=== PATIENT | female | born 1950 | race Caucasian/White ===

== ENCOUNTER 2025-05-23 15:27 | Inpatient (IN) | payer MEDICARE, OTHER ==
[~2025-05-23] VITALS: Ht 152.4 cm; Wt 175.0 kg
[2025-05-23 15:48] VITALS: BP 166/98; PULSE 103; RESP 16; TEMP 98.4; O2SAT 94
[2025-05-23 16:47] VITALS: BP 166/98; PULSE 103; RESP 16; TEMP 98.4; O2SAT 94
[2025-05-23] MEDS ORDERED: NITROGLYCERIN 0.4 MG SL TAB SL PRN (17:15)
[2025-05-23] MEDS ORDERED: MORPHINE SULFATE INJ 2 MG/ml SYRG IV PRN (17:15)
[2025-05-23] MEDS ORDERED: ASPI-543 PO (17:19)
[2025-05-23] MEDS ORDERED: POM (17:19)
[2025-05-23] MEDS ORDERED: POM PO (17:19)
[2025-05-23] MEDS ORDERED: LEVO25TA6 PO (17:19)
[2025-05-23] MEDS ORDERED: MELO7.5T7 PO (17:19)
[2025-05-23] MEDS ORDERED: METF-370 PO (17:19)
[2025-05-23] MEDS ORDERED: ACETAMINOPHEN 325 MG TAB PO PRN (17:30)
--- NOTE | 2025-05-23 17:38 | DVHHP2 ---
Patient Family History: Patient reports no known family medical history. Allergies: Coded Allergies: NO KNOWN ALLERGIES (Unverified , 05/23/25) Home Meds Reported Medications Patients Own Medication (PATIENTS OWN MEDICATION) ., 5-20 PO DAILY DRUG: Amlodipine/benazepril 5-20 FREQ: D RX# EXP: DATE DISP: TECH: RP: 05/23/25 Patients Own Medication (PATIENTS OWN MEDICATION) . PTS OWN MED-OBTAIN FROM PT AND SEND TO RX DRUG: FREQ: RX# EXP: DATE DISP: TECH: RP: 05/23/25 Aspirin (Aspir-Low) 81 Mg Tab, 81 MG PO DAILY for 30 Days, MG 05/23/25 Levothyroxine Sodium (Levothyroxine Sodium) 25 Mcg Tab, 25 MCG PO QAM, MCG 05/23/25 Meloxicam (Meloxicam) 7.5 Mg Tab, 1 TAB PO DAILY, #30 TAB 2 Refills 05/23/25 Metformin Hydrochloride (Metformin Hcl) 500 Mg Tab, 500 MG PO DAILY for 30 Days, MG 05/23/25 Current Medications Current Medications Medications (Trade) Dose Ordered Sig/Grupo Route PRN Reason Start Time Stop Time Status Last Admin Nitroglycerin (Ntrostat Sublingual) 0.4 mg Q5MINP PRN SL FOR CHEST PAIN 05/23/25 17:15 UNV Morphine Sulfate 2 mg Q30M PRN IV FOR CHEST PAIN 05/23/25 17:15 UNV Furosemide (Lasix Injection) 20 mg DAILY IV 05/24/25 10:00 UNV Acetaminophen (Tylenol Tablet) 325 mg Q6HP PRN PO MILD PAIN (1-3 PAIN SCALE) 05/23/25 17:30 UNV Vital Signs Vital Signs Date Time Temp Pulse Resp B/P (MAP) Pulse Ox O2 Delivery O2 Flow Rate FiO2 05/23/25 16:47 98.4 103 16 166/98 (120) 94 98.4 05/23/25 15:48 Room Air* 0 21 SEPSIS Sepsis Screen Physician Orders Admit (05/23/25 17:14) Nitroglycerin Sublingual (Ntrostat Subli (05/23/25 17:15) Morphine Sulfate Injection (05/23/25 17:15) Stat Ekg For Chest Pain (05/23/25 17:14) Notify Md Of Changes From Base (05/23/25 17:14) Assembler Clip On Sunglasses For 24 Hours (05/23/25 17:14) Emergency Dysrhythmia Protocol (05/23/25 17:14) Rhythm Strips Once Every Shift (05/23/25 17:14) Oxygen By Nasal Cannula (05/23/25 17:14) Furosemide Injection (Lasix Injection) (05/24/25 10:00) Furosemide Injection (Lasix Injection) (05/23/25 17:15) Complete Blood Count (05/23/25 17:14) Complete Blood Count (05/24/25 07:00) Comprehensive Metabolic Panel (05/23/25 17:14) Comprehensive Metabolic Panel (05/24/25 07:00) Thyroid Stimulating Hormone (05/23/25 17:14) Lipid Panel (05/23/25 07:00) Hemoglobin A1c (05/24/25 07:00) Chest Two Views Routine (05/23/25 17:14) Electrocardigram (05/24/25 05:00) Electrocardigram (05/23/25 18:14) Electrocardigram (05/23/25 20:14) B-Type Natriuretic Peptide (05/23/25 17:14) Acetaminophen Tablet (Tylenol Tablet) (05/23/25 17:30) Consistent Carb(Ccho)Diabetes (05/23/25 Dinner) Vital Signs Date Time Temp Pulse Resp B/P (MAP) Pulse Ox O2 Delivery O2 Flow Rate FiO2 05/23/25 16:47 98.4 103 16 166/98 (120) 94 98.4 05/23/25 15:48 Room Air* 0 21 05/23/25 15:48 98.4 103 16 166/98 (120) 94 98.4 LILLIAM KINGSLEY MD May 23, 2025 17:38
[2025-05-23] MEDS: FUROSEMIDE 20 MG/2 ML VIAL IV ONE (17:47)
[2025-05-23 18:31] LABS: Hematocrit 47.8 % (36.0-46.0); Hemoglobin 16.4 g/dL (12.2-16.2); Mean Corpuscular Hemoglobin 31.5 pg (28.0-32.0); Mean Corpuscular Volume 91.8 fL (80.0-100.0); Nucleated Red Blood Cells % 0.1 %
[2025-05-23 18:43] LABS: Triglycerides 118 mg/dL (< 150)
[2025-05-23 18:45] LABS: HDL Cholesterol 54 mg/dL (40-59)
[2025-05-23 18:46] LABS: Alanine Aminotransferase 15 U/L (7-40); Alkaline Phosphatase 110 U/L (46-116); Anion Gap 8 (5-15); BUN/Creatinine Ratio 12.0 (10.0-20.0); Blood Urea Nitrogen 13 mg/dL (9-23); Calcium 9.2 mg/dL (8.7-10.4); Carbon Dioxide 27 mmol/L (20-31); Chloride 106 mmol/L (98-107); Cholesterol 267 mg/dL (< 200); Potassium 4.0 mmol/L (3.5-5.1); Sodium 141 mmol/L (136-145); Total Protein 7.5 g/dL (5.7-8.2)
[2025-05-23 18:47] LABS: Albumin 4.8 g/dL (3.2-4.8); Bilirubin, Total 0.6 mg/dL (0.2-1.0); Glucose 112 mg/dL (74-106)
[2025-05-23 20:00] VITALS: PULSE 97
[2025-05-23 21:00] VITALS: BP 134/79; PULSE 76; RESP 17; TEMP 98; O2SAT 92
[2025-05-24] VITALS (7 sets, daily range): BP systolic 129–160; BP diastolic 78–93; PULSE 71–94; RESP 16–19; TEMP 97.7–98.3; O2SAT 90–99
[2025-05-24 07:46] LABS: Hematocrit 45.6 % (36.0-46.0); Hemoglobin 15.3 g/dL (12.2-16.2); Mean Corpuscular Hemoglobin 30.9 pg (28.0-32.0); Mean Corpuscular Volume 91.7 fL (80.0-100.0); Nucleated Red Blood Cells % 0.0 %
[2025-05-24 07:56] LABS: Alanine Aminotransferase 13 U/L (7-40); Albumin 4.2 g/dL (3.2-4.8); Alkaline Phosphatase 96 U/L (46-116); Anion Gap 8 (5-15); BUN/Creatinine Ratio 16.0 (10.0-20.0); Blood Urea Nitrogen 17 mg/dL (9-23); Calcium 9.2 mg/dL (8.7-10.4); Carbon Dioxide 27 mmol/L (20-31); Glucose 102 mg/dL (74-106); Potassium 4.2 mmol/L (3.5-5.1); Sodium 144 mmol/L (136-145); Total Protein 6.8 g/dL (5.7-8.2)
[2025-05-24 07:57] LABS: Bilirubin, Total 0.5 mg/dL (0.2-1.0)
[2025-05-24 08:07] LABS: Chloride 109 mmol/L (98-107)
--- NOTE | 2025-05-24 08:53 | DVH ---
EXAM: XY CHEST TWO VIEWS ROUTINE CLINICAL HISTORY: CHF COMPARISON: None TECHNIQUE: Frontal and lateral view of the chest was obtained FINDINGS: Lines and Tubes: None Lungs: No focal consolidation. Pleura: No effusion. No pneumothorax. Cardiomediastinal contours: Unremarkable. Atherosclerotic vascular calcifications of the thoracic ao rta are noted. Bones: No acute osseous abnormality. IMPRESSION: No acute cardiopulmonary disease.
[2025-05-24] MEDS: FUROSEMIDE 20 MG/2 ML VIAL IV SCH (10:28)
--- NOTE | 2025-05-24 22:33 | DVHPN2 ---
Progress Note - Dictate Subjective Currently being evaluated for acute congestive heart failure, anasarca And uncontrolled hypertension. The patient is responding to IV diuretics and fluid restriction Her urine output is exiting oral intake of fluids Overnight events are reviewed through medical chart and case discussion with patient's assigned RN while making rounds on patient on the day of service vital signs Vital Sign Date Time Temp Pulse Resp B/P (MAP) Pulse Ox O2 Delivery O2 Flow Rate FiO2 05/24/25 20:00 Room Air* 0 21 05/24/25 17:00 98.3 88 18 146/89 (108) 95 98.3 Total Intake and Output 05/23/25 05/23/25 05/24/25 14:59 22:59 06:59 Intake Total 550 ml Balance 550 ml medications Current Medications Medications Dose Ordered Sig/Grupo Route Start Time Stop Time Status Last Admin Dose Admin Nitroglycerin 0.4 mg Q5MINP PRN SL 05/23/25 17:15 Morphine Sulfate 2 mg Q30M PRN IV 05/23/25 17:15 Furosemide 20 mg DAILY IV 05/24/25 10:00 05/24/25 10:28 20 MG Acetaminophen 325 mg Q6HP PRN PO 05/23/25 17:30 objective General appearance: Well-developed, well-nourished Awake alert oriented x3 no respiratory distress Head: Normocephalic nontraumatic Eyes: EOMI, KAYLIN, sclera nonicteric, conjunctive- pale ENT: No congestion, NSL bilateral symmetrical, oral mucosa dry Neck: Supple, carotid upstroke +2, trachea midline, JVD-3 cm, C spine- Full ROM No thyroid or lymph node , no use of sternomastoid muscle Chest: Bilateral symmetrical expansions, No costochondral tenderness Breasts: I exam - Bilateral symmetrical, Pexam - deferred Lungs: clear breath sounds all over except reduced at bases CVS: PMI- cm medial to L MCL in fifth ICS , S1- S2 NSR no S3 GI: Abdomen soft, obese, bowel sounds normoactive No focal tenderness, no rebound tenderness No hepatosplenomegaly, no mass no hernia , : No CVA tenderness, no bladder mass palpable, genitalia-NE SKIN: Turgor normal, color pink, no rash, no icterus, No varicosity, no ulcers or wounds EXTs: No edema, color pink, no rash, no ecchymosis distal pulses +2 capillary refill <2 seconds, No open wounds JOINTS; full range of motion BACK: No apparent lumbosacral spinal muscle tenderness, LYMPH NODES: No cervical, axillary or inguinal lymph nodes Neuro: Awake alert oriented 4, coherent, all cognitives- intact No pronator drift, no focal motor deficit, No focal sensory deficit, DTR +2, gait steady PSYCH: Affect mildly depressed-denies suicidal ideation laboratory and microbiology Laboratory Tests 05/24/25 06:02 Test 05/24/25 06:02 Range/Units Serum Glucose 102 74-106 mg/dL Problem List Acute congestive heart failure Anasarca Retention edema Hypothyroidism Assessment/Plan Recommended patient to continue receiving IV Lasix LILLIAM KINGSLEY MD May 24, 2025 22:33
[2025-05-25] VITALS (8 sets, daily range): BP systolic 123–149; BP diastolic 76–90; PULSE 70–113; RESP 15–18; TEMP 97.4–98.2; O2SAT 92–99
[2025-05-25 06:27] LABS: Alanine Aminotransferase 13 U/L (7-40); Alkaline Phosphatase 94 U/L (46-116); Calcium 9.0 mg/dL (8.7-10.4); Carbon Dioxide 28 mmol/L (20-31); Potassium 4.4 mmol/L (3.5-5.1)
[2025-05-25 06:28] LABS: Albumin 4.2 g/dL (3.2-4.8); Anion Gap 6 (5-15); BUN/Creatinine Ratio 16.9 (10.0-20.0); Bilirubin, Total 0.6 mg/dL (0.2-1.0); Blood Urea Nitrogen 20 mg/dL (9-23); Sodium 141 mmol/L (136-145); Total Protein 6.8 g/dL (5.7-8.2)
[2025-05-25 06:43] LABS: Chloride 107 mmol/L (98-107); Glucose 113 mg/dL (74-106)
--- NOTE | 2025-05-25 08:26 | DVH ---
US KIDNEY HISTORY: hydronephrosis COMPARISON: None TECHNIQUE: Transverse and longitudinal grayscale and color doppler images were obtained of the kidney s and bladder. FINDINGS: Right kidney: Size: 8.5 cm Cortical thickness: Normal Echogenicity: Normal Stones: None Masses: None Hydronephrosis: None Ureters: Not well visualized. Other: None Left kidney: Size: 8.9 cm Cortical thickness: Normal Echogenicity: Normal Stones: None Masses: None Hydronephrosis: None Ureters: Not well visualized. Other: None Bladder: Normal Other: None. IMPRESSION: No hydronephrosis seen.
--- NOTE | 2025-05-25 12:15 | ECG ---
[facility] Test Date: 2025-05-23 Test Time: 18:01:34 Pat Name: TYRON ALVARENGA Department: [facility] Room: [address] [place] [address] Gender: F Security Operations Analyst: PRIMITIVO : 1950 Requested By: LILLIAM KINGSLEY Order Number: [id number] Reading MD: Brady Silva Measurements Intervals [place] Rate: 82 P: 63 MD: 146 QRS: 32 QRSD: 78 T: 76 QT: 353 QTc: 413 Interpretive Statements Sinus rhythm Borderline T abnormalities, anterior leads Electronically Signed On 05-27-2025 10:12:45 PDT by Brady Silva Please click the below link to view image of tracing.
--- NOTE | 2025-05-25 16:26 | DVHPN2 ---
Progress Note - Dictate Date Seen: May 25, 2025 Subjective Currently being evaluated for acute congestive heart failure, anasarca And uncontrolled hypertension. The patient is responding to IV diuretics and fluid restriction Her urine output is exiting oral intake of fluids Overnight events are reviewed through medical chart and case discussion with patient's assigned RN while making rounds on patient on the day of service vital signs Vital Sign Date Time Temp Pulse Resp B/P (MAP) Pulse Ox O2 Delivery O2 Flow Rate FiO2 05/25/25 12:55 98.0 90 18 141/76 (97) 94 98.0 05/25/25 08:00 Room Air* 0 21 Total Intake and Output 05/24/25 05/24/25 05/25/25 15:00 23:00 07:00 Intake Total 800 ml 650 ml Balance 800 ml 650 ml medications Current Medications Medications Dose Ordered Sig/Grupo Route Start Time Stop Time Status Last Admin Dose Admin Nitroglycerin 0.4 mg Q5MINP PRN SL 05/23/25 17:15 Morphine Sulfate 2 mg Q30M PRN IV 05/23/25 17:15 Furosemide 20 mg DAILY IV 05/24/25 10:00 05/25/25 10:02 20 MG Acetaminophen 325 mg Q6HP PRN PO 05/23/25 17:30 objective General appearance: Well-developed, well-nourished Awake alert oriented x3 no respiratory distress Head: Normocephalic nontraumatic Eyes: EOMI, KAYLIN, sclera nonicteric, conjunctive- pale ENT: No congestion, NSL bilateral symmetrical, oral mucosa dry Neck: Supple, carotid upstroke +2, trachea midline, JVD-3 cm, C spine- Full ROM No thyroid or lymph node , no use of sternomastoid muscle Chest: Bilateral symmetrical expansions, No costochondral tenderness Breasts: I exam - Bilateral symmetrical, Pexam - deferred Lungs: clear breath sounds all over except reduced at bases CVS: PMI- cm medial to L MCL in fifth ICS , S1- S2 NSR no S3 GI: Abdomen soft, obese, bowel sounds normoactive No focal tenderness, no rebound tenderness No hepatosplenomegaly, no mass no hernia , : No CVA tenderness, no bladder mass palpable, genitalia-NE SKIN: Turgor normal, color pink, no rash, no icterus, No varicosity, no ulcers or wounds EXTs: No edema, color pink, no rash, no ecchymosis distal pulses +2 capillary refill <2 seconds, No open wounds JOINTS; full range of motion BACK: No apparent lumbosacral spinal muscle tenderness, LYMPH NODES: No cervical, axillary or inguinal lymph nodes Neuro: Awake alert oriented 4, coherent, all cognitives- intact No pronator drift, no focal motor deficit, No focal sensory deficit, DTR +2, gait steady PSYCH: Affect mildly depressed-denies suicidal ideation laboratory and microbiology Laboratory Tests 05/25/25 05:32 05/24/25 06:02 Test 05/25/25 05:32 Range/Units Serum Glucose 113 H 74-106 mg/dL Problem List Acute congestive heart failure Anasarca Retention edema Hypothyroidism Assessment/Plan Recommended patient to continue receiving IV Lasix LILLIAM KINGSLEY MD May 25, 2025 16:26
[2025-05-26] VITALS (9 sets, daily range): BP systolic 119–153; BP diastolic 72–90; PULSE 74–113; RESP 16–20; TEMP 97.6–98.3; O2SAT 92–98
--- NOTE | 2025-05-26 16:47 | DVHPN2 ---
Progress Note - Dictate Date Seen: May 26, 2025 Subjective Currently being evaluated for acute congestive heart failure, anasarca And uncontrolled hypertension. She is responding to IV diuretics fluid restriction She received 2D echo exam results of which are pending Recommended renal ultrasound for acute kidney injury She reports to have symptoms of wheezing and chest congestion Recommended patient to receive IV antibiotics and bronchodilators med neb treatments Overnight events are reviewed through medical chart and case discussion with patient's assigned RN while making rounds on patient on the day of service vital signs Vital Sign Date Time Temp Pulse Resp B/P (MAP) Pulse Ox O2 Delivery O2 Flow Rate FiO2 05/26/25 13:00 97.6 92 20 147/90 (109) 95 97.6 05/26/25 08:00 Room Air* 0 21 Total Intake and Output 05/25/25 05/25/25 05/26/25 15:00 23:00 07:00 Intake Total 250 ml 600 ml Balance 250 ml 600 ml medications Current Medications Medications Dose Ordered Sig/Grupo Route Start Time Stop Time Status Last Admin Dose Admin Nitroglycerin 0.4 mg Q5MINP PRN SL 05/23/25 17:15 Morphine Sulfate 2 mg Q30M PRN IV 05/23/25 17:15 Furosemide 20 mg DAILY IV 05/24/25 10:00 05/26/25 09:37 20 MG Acetaminophen 325 mg Q6HP PRN PO 05/23/25 17:30 objective General appearance: Well-developed, well-nourished Awake alert oriented x3 no respiratory distress Head: Normocephalic nontraumatic Eyes: EOMI, KAYLIN, sclera nonicteric, conjunctive- pale ENT: No congestion, NSL bilateral symmetrical, oral mucosa dry Neck: Supple, carotid upstroke +2, trachea midline, JVD-3 cm, C spine- Full ROM No thyroid or lymph node , no use of sternomastoid muscle Chest: Bilateral symmetrical expansions, No costochondral tenderness Breasts: I exam - Bilateral symmetrical, Pexam - deferred Lungs: clear breath sounds all over except reduced at bases CVS: PMI- cm medial to L MCL in fifth ICS , S1- S2 NSR no S3 GI: Abdomen soft, obese, bowel sounds normoactive No focal tenderness, no rebound tenderness No hepatosplenomegaly, no mass no hernia , : No CVA tenderness, no bladder mass palpable, genitalia-NE SKIN: Turgor normal, color pink, no rash, no icterus, No varicosity, no ulcers or wounds EXTs: No edema, color pink, no rash, no ecchymosis distal pulses +2 capillary refill <2 seconds, No open wounds JOINTS; full range of motion BACK: No apparent lumbosacral spinal muscle tenderness, LYMPH NODES: No cervical, axillary or inguinal lymph nodes Neuro: Awake alert oriented 4, coherent, all cognitives- intact No pronator drift, no focal motor deficit, No focal sensory deficit, DTR +2, gait steady PSYCH: Affect mildly depressed-denies suicidal ideation laboratory and microbiology Laboratory Tests 05/25/25 05:32 05/24/25 06:02 Test 05/25/25 05:32 Range/Units Serum Glucose 113 H 74-106 mg/dL Problem List Acute congestive heart failure Anasarca Retention edema Hypothyroidism Assessment/Plan Recommended patient to continue receiving IV Lasix Dietary Evaluation Review Recommendations by RD: Dietary education by RD Comments: 1) Add cardiac restriction to 60g CCHO diet 2) Encourage optimal PO intake 3) Refer to outpatient RD/CDCES for weight management 4) Follow-up with cardiology 5) Continue to monitor I&O, labs, and skin integrity Expected Outcomes/Goals: 1) appetite and labs to improve 2) gradual wt loss 3) f/u in 3-5 days LILLIAM KINGSLEY MD May 26, 2025 16:47
[2025-05-26] MEDS: ALBUTEROL SULF 2.5 MG/0.5ML(0.5%) NEB SOLN ONE (16:59)
[2025-05-26] MEDS: ALBUTEROL SULF 2.5 MG/0.5ML(0.5%) NEB SOLN NEB ONE (16:59)
--- NOTE | 2025-05-26 19:38 | DVHSR ---
APPROVED REPORT EXAM: Two-dimensional and M-mode echocardiogram with Doppler and color Doppler. Blood Pressure: 128/86 mmHg INDICATION CHF RISK FACTORS Obesity: Height: 5'0", Weight: 173 DIMENSIONS LVDd3.3 (3.8-5.7cm)LA (2D)2.4 (1.9-4.0cm)Aortic Root3.1 (2.0-3.7cm) LVDs2.3 (2.5-4.0cm)LA (MM) (1.9-4.0cm)Aortic Cusp Exc1.5 (1.5-2.0cm) EF (%) 50.0 (55-70%)Rt. Atrium3.2 (1.9-4.0cm)Asc. Aorta cm IVSd1.0 (0.7-1.1cm)RV (D) (1.8-2.4cm) PWd1.1 (0.7-1.1cm) Mitral Valve MitralMitral Stenosis E wave0.61m/sMV Mean GR.mmHg A wave1.07m/sMV Peak GR.mmHg E/A ratio0.62D MVAcm2 DECEL [id number] 1/2 Timems Aortic Valve Aortic ValveAortic Stenosis V10.90m/Nikky Mean GR.3mmHg V21.24m/Nikky Peak GR.6mmHg LVOT Diameter1.6 (1.8-2.4cm)Doppler AVA1.46cm2 Other Information Quality : Technically LimitedRhythm : Technically limited study due to body habitus. Conclusion MILD LVH AND MILD LV DIASTOLIC DYSFUNCTION LV EF IS 60% NORMAL VALVES NORMAL RV FUNCTION NO EFFUSION
[2025-05-27] VITALS (15 sets, daily range): BP systolic 122–150; BP diastolic 73–95; PULSE 75–107; RESP 16–18; TEMP 97.2–98.5; O2SAT 93–100
[2025-05-27 07:43] LABS: Hematocrit 44.5 % (36.0-46.0); Hemoglobin 15.2 g/dL (12.2-16.2); Mean Corpuscular Hemoglobin 31.3 pg (28.0-32.0); Mean Corpuscular Volume 91.3 fL (80.0-100.0); Nucleated Red Blood Cells % 0.1 %
[2025-05-27 07:55] LABS: Alanine Aminotransferase 11 U/L (7-40); Albumin 4.1 g/dL (3.2-4.8); Alkaline Phosphatase 89 U/L (46-116); Anion Gap 3 (5-15); BUN/Creatinine Ratio 17.5 (10.0-20.0); Bilirubin, Total 0.5 mg/dL (0.2-1.0); Blood Urea Nitrogen 22 mg/dL (9-23); Calcium 9.0 mg/dL (8.7-10.4); Carbon Dioxide 30 mmol/L (20-31); Glucose 101 mg/dL (74-106); Potassium 4.7 mmol/L (3.5-5.1); Sodium 141 mmol/L (136-145); Total Protein 6.6 g/dL (5.7-8.2)
[2025-05-27 08:03] LABS: Chloride 108 mmol/L (98-107)
--- NOTE | 2025-05-27 10:20 | DVH ---
ULTRASOUND RENAL CLINICAL INDICATION: Renal artery stenosis TECHNIQUE: Real-time sonographic, duplex, and color Doppler images of the kidneys were obtained. FINDINGS: Resistive indices and velocities within normal limits IMPRESSION: Normal examination. [<reference, normal RI <.7>]
[2025-05-27] MEDS: ALBUTEROL SULF 2.5 MG/0.5ML(0.5%) NEB SOLN NEB PRN (19:52)
--- NOTE | 2025-05-27 23:06 | DVHPN2 ---
Progress Note - Dictate Date Seen: May 27, 2025 Subjective Currently being evaluated for acute congestive heart failure, anasarca And uncontrolled hypertension. She is responding to IV diuretics fluid restriction She received 2D echo exam results of which are pending Recommended renal ultrasound for acute kidney injury She reports to have symptoms of wheezing and chest congestion Recommended patient to receive IV antibiotics and bronchodilators med neb treatments Overnight events are reviewed through medical chart and case discussion with patient's assigned RN while making rounds on patient on the day of service vital signs Vital Sign Date Time Temp Pulse Resp B/P (MAP) Pulse Ox O2 Delivery O2 Flow Rate FiO2 05/27/25 21:00 98.5 106 16 150/89 (109) 94 98.5 05/27/25 19:52 Room Air 05/27/25 19:52 0 21 Total Intake and Output 05/26/25 05/26/25 05/27/25 15:00 23:00 07:00 Intake Total 820 ml Balance 820 ml medications Current Medications Medications Dose Ordered Sig/Grupo Route Start Time Stop Time Status Last Admin Dose Admin Nitroglycerin 0.4 mg Q5MINP PRN SL 05/23/25 17:15 Morphine Sulfate 2 mg Q30M PRN IV 05/23/25 17:15 Furosemide 20 mg DAILY IV 05/24/25 10:00 05/27/25 09:25 20 MG Acetaminophen 325 mg Q6HP PRN PO 05/23/25 17:30 Ceftriaxone Sodium 50 ml @ 100 mls/hr DAILY@09 IV 05/27/25 09:00 05/27/25 09:26 100 MLS/HR Albuterol 2.5 mg Q4HPRN PRN NEB 05/26/25 17:00 05/27/25 19:52 2.5 MG objective General appearance: Well-developed, well-nourished Awake alert oriented x3 no respiratory distress Head: Normocephalic nontraumatic Eyes: EOMI, KAYLIN, sclera nonicteric, conjunctive- pale ENT: No congestion, NSL bilateral symmetrical, oral mucosa dry Neck: Supple, carotid upstroke +2, trachea midline, JVD-3 cm, C spine- Full ROM No thyroid or lymph node , no use of sternomastoid muscle Chest: Bilateral symmetrical expansions, No costochondral tenderness Breasts: I exam - Bilateral symmetrical, Pexam - deferred Lungs: clear breath sounds all over except reduced at bases CVS: PMI- cm medial to L MCL in fifth ICS , S1- S2 NSR no S3 GI: Abdomen soft, obese, bowel sounds normoactive No focal tenderness, no rebound tenderness No hepatosplenomegaly, no mass no hernia , : No CVA tenderness, no bladder mass palpable, genitalia-NE SKIN: Turgor normal, color pink, no rash, no icterus, No varicosity, no ulcers or wounds EXTs: No edema, color pink, no rash, no ecchymosis distal pulses +2 capillary refill <2 seconds, No open wounds JOINTS; full range of motion BACK: No apparent lumbosacral spinal muscle tenderness, LYMPH NODES: No cervical, axillary or inguinal lymph nodes Neuro: Awake alert oriented 4, coherent, all cognitives- intact No pronator drift, no focal motor deficit, No focal sensory deficit, DTR +2, gait steady PSYCH: Affect mildly depressed-denies suicidal ideation laboratory and microbiology Laboratory Tests 05/27/25 06:44 Test 05/27/25 06:44 Range/Units Serum Glucose 101 74-106 mg/dL Problem List Acute congestive heart failure Anasarca Retention edema Hypothyroidism Assessment/Plan Recommended patient to continue receiving IV Lasix Dietary Evaluation Review Recommendations by RD: Dietary education by RD Comments: 1) Add cardiac restriction to 60g CCHO diet 2) Encourage optimal PO intake 3) Refer to outpatient RD/CDCES for weight management 4) Follow-up with cardiology 5) Continue to monitor I&O, labs, and skin integrity Expected Outcomes/Goals: 1) appetite and labs to improve 2) gradual wt loss 3) f/u in 3-5 days LILLIAM KINGSLEY MD May 27, 2025 23:06
[2025-05-28] VITALS (8 sets, daily range): BP systolic 126–142; BP diastolic 73–89; PULSE 75–88; RESP 16–20; TEMP 36.1; O2SAT 93–98
--- NOTE | 2025-05-28 12:12 | DVHPN2 ---
Progress Note - Dictate Date Seen: May 28, 2025 Subjective Currently being evaluated for acute congestive heart failure, anasarca And uncontrolled hypertension. She is responding to IV diuretics fluid restriction She received 2D echo exam results of which are pending Recommended renal ultrasound for acute kidney injury She reports to have symptoms of wheezing and chest congestion Recommended patient to receive IV antibiotics and bronchodilators med neb treatments Overnight events are reviewed through medical chart and case discussion with patient's assigned RN while making rounds on patient on the day of service vital signs Vital Sign Date Time Temp Pulse Resp B/P (MAP) Pulse Ox O2 Delivery O2 Flow Rate FiO2 05/28/25 10:00 97 Nasal Cannula* 2 28 05/28/25 09:47 134/86 05/28/25 09:00 97.0 87 18 97.0 Total Intake and Output 05/27/25 05/27/25 05/28/25 15:00 23:00 07:00 Intake Total 50 ml 0 ml 400 ml Balance 50 ml 0 ml 400 ml medications Current Medications Medications Dose Ordered Sig/Grupo Route Start Time Stop Time Status Last Admin Dose Admin Nitroglycerin 0.4 mg Q5MINP PRN SL 05/23/25 17:15 Morphine Sulfate 2 mg Q30M PRN IV 05/23/25 17:15 Furosemide 20 mg DAILY IV 05/24/25 10:00 05/28/25 09:47 20 MG Acetaminophen 325 mg Q6HP PRN PO 05/23/25 17:30 Ceftriaxone Sodium 50 ml @ 100 mls/hr DAILY@09 IV 05/27/25 09:00 05/28/25 09:37 100 MLS/HR Albuterol 2.5 mg Q4HPRN PRN NEB 05/26/25 17:00 05/27/25 19:52 2.5 MG objective General appearance: Well-developed, well-nourished Awake alert oriented x3 no respiratory distress Head: Normocephalic nontraumatic Eyes: EOMI, KAYLIN, sclera nonicteric, conjunctive- pale ENT: No congestion, NSL bilateral symmetrical, oral mucosa dry Neck: Supple, carotid upstroke +2, trachea midline, JVD-3 cm, C spine- Full ROM No thyroid or lymph node , no use of sternomastoid muscle Chest: Bilateral symmetrical expansions, No costochondral tenderness Breasts: I exam - Bilateral symmetrical, Pexam - deferred Lungs: clear breath sounds all over except reduced at bases CVS: PMI- cm medial to L MCL in fifth ICS , S1- S2 NSR no S3 GI: Abdomen soft, obese, bowel sounds normoactive No focal tenderness, no rebound tenderness No hepatosplenomegaly, no mass no hernia , : No CVA tenderness, no bladder mass palpable, genitalia-NE SKIN: Turgor normal, color pink, no rash, no icterus, No varicosity, no ulcers or wounds EXTs: No edema, color pink, no rash, no ecchymosis distal pulses +2 capillary refill <2 seconds, No open wounds JOINTS; full range of motion BACK: No apparent lumbosacral spinal muscle tenderness, LYMPH NODES: No cervical, axillary or inguinal lymph nodes Neuro: Awake alert oriented 4, coherent, all cognitives- intact No pronator drift, no focal motor deficit, No focal sensory deficit, DTR +2, gait steady PSYCH: Affect mildly depressed-denies suicidal ideation laboratory and microbiology Laboratory Tests 05/27/25 06:44 Test 05/27/25 06:44 Range/Units Serum Glucose 101 74-106 mg/dL Problem List Acute congestive heart failure Anasarca Retention edema Hypothyroidism Assessment/Plan Recommended patient to continue receiving IV Lasix Dietary Evaluation Review Recommendations by RD: Dietary education by RD Comments: 1) Add cardiac restriction to 60g CCHO diet 2) Encourage optimal PO intake 3) Refer to outpatient RD/CDCES for weight management 4) Follow-up with cardiology 5) Continue to monitor I&O, labs, and skin integrity Expected Outcomes/Goals: 1) appetite and labs to improve 2) gradual wt loss 3) f/u in 3-5 days LILLIAM KINGSLEY MD May 28, 2025 12:12
--- NOTE | 2025-05-28 12:15 | DVHDS2 ---
Discharge Summary Date of Admission May 23, 2025 at 15:27 Date of Discharge: May 28, 2025 Labs/Diagnostic Data: Laboratory Results Test 05/27/25 06:44 05/24/25 06:02 05/23/25 17:59 White Blood Count 6.5 10^3/uL (4.4-10.8) Red Blood Count 4.87 10^6/uL (4.0-5.20) Hemoglobin 15.2 g/dL (12.2-16.2) Hematocrit 44.5 % (36.0-46.0) Mean Corpuscular Volume 91.3 fL (80.0-100.0) Mean Corpuscular Hemoglobin 31.3 pg (28.0-32.0) Mean Corpuscular Hemoglobin Concent 34.2 g/dL (32.0-36.0) Red Cell Distribution Width 14.5 % (11.8-14.3) Platelet Count 232 10^3/uL (140-450) Mean Platelet Volume 8.6 fL (6.9-10.8) Neutrophils (%) (Auto) 49.9 % (37.0-80.0) Lymphocytes (%) (Auto) 38.1 % (10.0-50.0) Monocytes (%) (Auto) 9.4 % (0.0-12.0) Eosinophils (%) (Auto) 1.8 % (0.0-7.0) Basophils (%) (Auto) 0.8 % (0.0-2.0) Neutrophils # (Auto) 3.3 10 ^3/uL (1.6-8.6) Lymphocytes # (Auto) 2.5 10 ^3/uL (0.4-5.4) Monocytes # (Auto) 0.6 10 ^3/uL (0-1.3) Eosinophils # (Auto) 0.1 10 ^3/uL (0-0.8) Basophils # (Auto) 0.1 10 ^3/uL (0-0.2) Nucleated Red Blood Cells 0.1 % Sodium Level 141 mmol/L (136-145) Potassium Level 4.7 mmol/L (3.5-5.1) Chloride Level 108 mmol/L (98-107) Carbon Dioxide Level 30 mmol/L (20-31) Anion Gap 3 (5-15) Blood Urea Nitrogen 22 mg/dL (9-23) Creatinine 1.26 mg/dL (0.550-1.02) Glomerular Filtration Rate Calc 45 mL/min (>90) BUN/Creatinine Ratio 17.5 (10.0-20.0) Serum Glucose 101 mg/dL (74-106) Calcium Level 9.0 mg/dL (8.7-10.4) Total Bilirubin 0.5 mg/dL (0.2-1.0) Aspartate Amino Transferase (AST) 14 U/L (13-40) Alanine Aminotransferase (ALT) 11 U/L (7-40) Alkaline Phosphatase 89 U/L (46-116) Total Protein 6.6 g/dL (5.7-8.2) Albumin 4.1 g/dL (3.2-4.8) Hemoglobin A1c 6.5 % A1C (<5.7) B-Type Natriuretic Peptide 27.37 pg/mL (0-100) Triglycerides Level 118 mg/dL (< 150) Cholesterol Level 267 mg/dL (< 200) LDL Cholesterol 213 mg/dL (< 100) HDL Cholesterol 54 mg/dL (40-59) Thyroid Stimulating Hormone (TSH) 1.18 uIU/mL (0.55-4.78) Other Laboratory Tests 05/27/25 06:44 Discharge Instruct/Medications Scheduled Aspirin (Aspir-Low), 81 MG PO DAILY, (Reported) Levothyroxine Sodium (Levothyroxine Sodium), 25 MCG PO QAM, (Reported) Meloxicam (Meloxicam), 1 TAB PO DAILY, (Reported) Metformin Hydrochloride (Metformin Hcl), 500 MG PO DAILY, (Reported) Patients Own Medication (Patients Own Medication), 5-20 PO DAILY, (Reported) Miscellaneous Medications Patients Own Medication (Patients Own Medication), (Reported) Discharge Statement: "Patient was advised to return to the ER or call 911 if any headaches, dizziness, shortness of breath, chest pain, abdominal pain, bleeding, fevers, or worsening of medical condition. Patient was counseled about treatment plan, medications, possible side effects, patientverbalized understanding. All questions were answered to the best of my ability. This discharge took greater then 30 minutes in planning, reviewing documentation, counseling the patient, and discussing with other team members." ASSESSMENT ASSESSMENT Assessment LILLIAM KINGSLEY MD May 28, 2025 12:15
== END 2025-05-28 14:57 | disposition home or self-care (01) | DRG 291 ==
LOC: EAST 15:27 → TELE-EAST 05-26 20:28
PROVIDERS: ADMIT Specialist; ATTEND Specialist
DX: I11.0 Hypertensive heart disease with heart failure (principal); I50.31 Acute diastolic (congestive) heart failure; E03.9 Hypothyroidism, unspecified; Z79.82 Long term (current) use of aspirin; Z79.84 Long term (current) use of oral hypoglycemic drugs; Z79.899 Other long term (current) drug therapy
CPT/HCPCS: 36415; 71046; 76775; 80053; 80061; 83036; 83880; 84443; 85025; 93005; 93306; 93975; 94640; G0378